=== PATIENT | male | born 1945 | race Caucasian/White ===

== ENCOUNTER → 2019-10-18 | Outpatient (CLI) | payer MEDICARE ==
[~2019-10-18] MED LIST: FLOVENT DISKU100 MCG INH; LIPITOR10 MG PO
[2019-10-18 11:35] LABS: ABSOLUTE BASOPHILS 0.1 thou/uL (0.0-0.2); ABSOLUTE LYMPHOCYTES 0.7 thou/uL (0.8-5.3); ABSOLUTE MONOCYTES 0.8 thou/uL (0.0-1.2); ABSOLUTE NEUTROPHILS 6.7 thou/uL (1.6-8.1); BASOPHILS 0.7 %; EOSINOPHILS 0.6 %; HEMATOCRIT 44.1 % (42.0-52.0); HEMOGLOBIN 15.2 gm/dL (14.0-18.0); LYMPHOCYTES 8.3 %; MCH 32.2 pg (26.0-34.0); MCHC 34.5 g/dL (28.0-37.0); MCV 93.3 fL (80.0-100.0); MONOCYTES 10.1 %; MPV 8.4 fl. (7.2-11.1); NUCLEATED RBCS 0 /100WBC; PLATELET COUNT* 270 thou/uL (150-400); POLYS 80.3 %; RBC 4.73 mil/uL (4.50-6.00); RDW-CV 11.9 % (10.5-14.5); WBC 8.4 thou/uL (4.0-11.0)
[2019-10-18 11:51] LABS: ALBUMIN 3.7 g/dL (3.4-5.0); CALCIUM 9.4 mg/dL (8.5-10.1); CREATININE 0.8 mg/dL (0.6-1.3); POTASSIUM 4.5 mmol/L (3.5-5.1); TOTAL BILIRUBIN 0.6 mg/dL (<0.1-1.0); TOTAL PROTEIN 7.8 g/dL (6.4-8.2)
== END ==
LOC: M.ULTRA 11:15
PROVIDERS: Internal Medicine Gastroenterology
DX: R16.0 Hepatomegaly, not elsewhere classified (principal)

== ENCOUNTER → 2019-10-21 | Outpatient (CLI) | payer MEDICARE | LOC: M.CT 09:57 | DX: K76.89 Other specified diseases of liver (principal); R59.1 Generalized enlarged lymph nodes ==

== ENCOUNTER → 2019-10-22 | Outpatient (CLI) | payer MEDICARE ==
[2019-10-22] VITALS (7 sets, daily range): BP systolic 122–141; BP diastolic 66–666
[2019-10-22 11:55] LABS: CALCIUM 9.6 mg/dL (8.5-10.1); CREATININE 0.9 mg/dL (0.6-1.3); POTASSIUM 4.7 mmol/L (3.5-5.1)
[2019-10-22 12:01] LABS: APTT 28.7 Seconds (25.0-31.3); INR 1.1; PROTIME 11.5 Seconds (9.20-11.50)
--- NOTE | 2019-11-05 12:06 | PATH ---
[address] [address] PATHOLOGY RPT PROCEDURE Name: SABAS JONAS SUPA Room: [facility] SUSNA Gifford#: [id number] Admission: 10/22/19 Date of : 47 Discharge: Report #: [id number] Path Case #: [id number] [facility] Accession Number: [id number] . 01 Material submitted: . liver - LIVER MASS, RIGHT LOBE. Modifiers: right . 01 Clinical history: . Liver mass-Rt lobe 1.81 x 1.90 cm . 02 Diagnosis: Liver mass right lobe, image guided core biopsies: - METASTATIC POORLY DIFFERENTIATED ADENOCARCINOMA INVOLVING LIVER. SEE COMMENT. . (NADIRA:pit; 10/28/2019) QTP 10/28/2019 1053 Local . 02 Comment: Multiple tissue cores show non-dysplastic and non-cirrhotic liver with involvement by nests of poorly differentiated carcinoma present as bands and trabeculae of malignant cells in fairly minimal desmoplastic stroma. There is no definite gland formation. The malignant cells are characterized by ovoid very pleomorphic nuclei having very large generally single nucleoli and abundant amphophilic cytoplasm. Mitotic activity averages at least 3/hpf. A panel of properly controlled immunohistochemical stains are performed on A3 and the neoplastic cells show the following characteristics: CK7: Positive CK20: Patchy positive CK19: positive HepPar1 (hepatocyte specific antigen): Negative Glypican 3: Weak positive p63: Negative CDX2: Negative TTF-1: Negative PAS: Negative . Upon discussion of preliminary findings with Dr. Villanueva on early afternoon of 10/24/2019, he then forwards a surgical pathology report which showed a distal esophageal biopsy at 40 cm to have invasive moderately differentiated adenocarcinoma with additional esophageal biopsies also supporting a setting of Skinner's esophagus (rendered per Dr. Cleo Coker; [id number]). The constellation of histological and immunohistochemical findings are consistent with poorly differentiated metastatic adenocarcinoma of esophageal primary although a pancreatic primary cannot be entirely excluded. Colorectal, bronchogenic, [place] [address] PATHOLOGY RPT PROCEDURE Name: SABAS JONAS Room: [facility] Gifford#: [id number] Admission: 10/22/19 Date of : 47 Discharge: Report #: [id number] Path Case #: [id number] prostatic primaries are unlikely. . Results also discussed with Dr. Galeano at approximately 10:10 on 10/25/[address] Iraj Diggs, and again on am of 10/28/[address] Isidra Baird and, per his request, Her2 and PDL1 assessment will be performed and will be the subject of an addendum report. . Reviewed with Dr. Iraj Diggs who agrees with the diagnosis. (NADIRA:pit; 10/28/2019) . 02 Addendum: . Special studies report received from [facility] [address] [place] [address], on case [id number], labeled with their number [id number], dated 11/04/2019. . Material Submitted For Examination 0 H and E slides; 1 paraffin block [id number]; 1 report [id number]. Two H and E recuts from block [id number] are retained for [facility] files. Any original slides submitted, paraffin blocks, and other slides prepared at [facility] are returned. . Clinical Information The patient is a 73-year-old male with a history of esophageal adenocarcinoma who underwent core needle biopsy of a right lobe liver mass on 10/22/2019 which revealed metastatic poorly differentiated adenocarcinoma. Immunostains for both Her-2 and PD-L1 (clone 22C3) are requested, with interpretation of results. . Final Diagnosis Material from core needle biopsy of right lobe liver mass containing invasive adenocarcinoma for immunostaining (1 paraffin block "[id number]", collected 10/22/2019): --HER2 overexpression: Negative (1+, scale 0-3+) % of invasive tumor cells showing intense, complete membrane stainin% Strong basolateral or lateral membrane staining: Absent. . --PDL1 Expression Level: CPS > 1 (CPS 75, PD-L1 Expression) . --PD-L1 immunostain: Tumor Proportion Score (TPS) 75% (High expression) . Electronically Signed Out Miguel Angel Sauer MD . Microscopic Description Review of H and E stained section demonstrates a core of hepatic tissue containing a poorly differentiated adenocarcinoma. As requested immunostains for both Her-2 and PD-L1 (clone 22C3) are performed, with [address] [place] [address] PATHOLOGY RPT PROCEDURE Name: SABAS JONAS Room: [facility].#: [id number] Admission: 10/22/19 Date of : 47 Discharge: Report #: [id number] Path Case #: [id number] results rendered in the final diagnosis section above. . . Unless specified otherwise above, the quality of the H and E and any other special stains performed at [facility] (AFB, PAS, immunostains, etc.) is satisfactory, and any internal or external positive and negative controls react appropriately. Photographs that may be included in this report represent only selected aspects of the pathologic examination, and should not be considered diagnostic by themselves. . FDA required disclaimer If any immunohistochemical, immunofluorescence, or in-situ hybridization tests are included in this report, these tests were developed and their performance characteristics determined by [facility]. They have not been cleared or approved by the U.S. Food and Drug Administration (FDA). The FDA has determined that such clearance or approval is not necessary. These tests are used for clinical processes. They should not be regarded as investigational or for research. [facility] is certified under Clinical Laboratory Improvement Amendments of 1988 (CLIA) as qualified to perform high complexity clinical laboratory testing. . [employer] (CAP)-required information for predictive/prognostic markers. 1. Type of specimen fixation and processing: If fixed and processed at [facility], 10% neutral buffered formalin is used for fixation and the tissues are routinely processed and paraffin-embedded, unless specified otherwise above. If referred to [facility] from another laboratory, the fixation and processing are determined by the referring laboratory. Unless otherwise specified above in the report, material represents neutral buffered formalin (NBF)-fixed paraffin-embedded tissue that is routinely processed. 2. Detection system used at [facility]: Peroxidase-conjugated polymer. 3. Clones used: Estrogen receptor (ER)-SP1 ([employer]); Progesterone receptor (HI)-16 ([employer]); HER2-SP3 ([employer]); Ki-67-SP6 ([employer]); Information on other clones available by phones at [phone]. 4. Criteria for positive result for ER and HI: greater than or equal to 1% of tumor cells with nuclear staining. ER and HI results are reported as "indeterminate" if there is a problem in specimen handling, processing, or staining that compromises test reliability, in the judgment of the pathologist. Criteria for HER2 protein expression by immunohistochemistry (IHC): POSITIVE HER2 IMMUNOSTAIN is a 3+ IHC result, defined as intense, complete circumferential membrane staining in >10% of tumor cells. EQUIVOCAL HER2 IMMUNOSTAIN is a 2+ IHC result, defined as intense complete circumferential membrane staining in less than or equal to 10% of tumor cells OR circumferential staining that is incomplete and/or weak to moderate in >10% of tumor cells. NEGATIVE HER2 IMMUNOSTAIN is a 0 or 1+ IHC result, defined as follows: 1+ IHC result is incomplete faint or barely perceptible membrane staining within >10% of tumor cells; 0 IHC result is incomplete faint or barely perceptible [place] [address] PATHOLOGY RPT PROCEDURE Name: SABAS JONAS Room: [facility] Gifford#: [id number] Admission: 10/22/19 Date of : 47 Discharge: Report #: [id number] Path Case #: [id number] less than or equal to 10% of tumor cells OR no observable staining of tumor cells. Criteria for interpretation of HER2 immunostains are those advocated in the ASCO/CAP 2018 updated recommendations for HER2 testing in breast cancer, as described in the following link: http://www.cap.org/web/home/rrrchcog-mjt-afpasccqll/cap-guidelines/current cap-guidelines/poalx-osvypwhzy-khiuvp-factor2? hpeZpfn=[id number]#!%40%40%3F afrLoop%[id number]%26 adf.ctrl-state%0Vkemt85oz0 4 . Note on Decalcified Specimens: The above assays have not been formally validated on decalcified tissues. Results of immunostains obtained on decalcified specimens should be interpreted with caution given the possibility of an increased likelihood of false negativity on some decalcified specimens. . A complete copy of the report is on file. . [facility] [place] [address]. Technical services performed by [facility] [place] [address]. . (NADIRA:am 11/05/2019) . . . [place]/11/05/2019 Addendum Electronically Signed by Andriy Baird MD, Pathologist . 02 Electronically signed: . Andriy Baird MD, Pathologist NPI- [id number] . 01 Gross description: . Received in formalin labeled "Sabas Jonas, liver biopsy," are multiple needle core fragments of duran-brown soft tissue ranging from 0.1 to 1.5 cm in length, and measuring 0.1 cm each in diameter. The specimen is submitted entirely in cassettes A1 through A3. (DAC; 10/23/2019) XDC/XDC 10/23/2019 0649 Local . 02 Pathologist provided ICD-10: C78.7 . 02 CPT . 186281, B45293, S30958, 635168 Specimen Comment: A courtesy copy of this report has been sent to [phone], [phone] Specimen Comment: [phone], , Specimen Comment: Report sent to , , [address] [address] PATHOLOGY RPT PROCEDURE Name: SABAS JONAS Room: [facility]#: [id number] Admission: 10/22/19 Date of : 47 Discharge: Report #: [id number] Path Case #: [id number] Specimen Comment: and Specimen Comment: A duplicate report has been generated due to demographic updates. Performed at: 01 [facility] [address], [place], [place] [id number] MD Jayro Torres MD Phone: [phone] Performed at: 02 [facility] [address], [place] [id number] MD Andriy Baird MD Phone: [phone]
== END | disposition home or self-care (01) ==
LOC: M.LAB 11:30 → M.ULTRA 13:00
PROVIDERS: Internal Medicine Gastroenterology
DX: C78.7 Secondary malignant neoplasm of liver and intrahepatic bile duct (principal); Z98.890 Other specified postprocedural states; Z79.899 Other long term (current) drug therapy

== ENCOUNTER → 2019-10-25 | Outpatient (CLI) | payer MEDICARE ==
[~2019-10-25] VITALS: Ht 175.3 cm; Wt 72.6 kg
[2019-10-25 14:23] VITALS: BP 139/87
== END | disposition home or self-care (01) ==
LOC: M.INT 13:11
DX: Z45.2 Encounter for adjustment and management of vascular access device (principal); C78.7 Secondary malignant neoplasm of liver and intrahepatic bile duct; Z79.899 Other long term (current) drug therapy